=== PATIENT | male | born 1990 | race Hispanic/Latino ===

== ENCOUNTER 2022-01-18 03:20 | Emergency (ER) | payer OTHER ==
[~2022-01-18] VITALS: Ht 175.3 cm; Wt 84.1 kg
[2022-01-18 08:06] VITALS: BP 138/68
== END 2022-01-18 08:08 | disposition home or self-care (01) ==
LOC: M ED 03:20
DX: R50.9 Fever, unspecified (principal); R05.9 Cough, unspecified; B34.8 Other viral infections of unspecified site